=== PATIENT | female | born 1965 | race Hispanic/Latino ===

== ENCOUNTER 2017-11-10 09:38 | Outpatient (CLI) | payer OTHER ==
--- NOTE | 2017-11-10 14:15 | Fluoroscopy Report ---
FLUOROSCOPIC SNIFF TEST: INDICATION: Disorders of diaphragm. Difficulty breathing, dropping oxygen saturation. History of intubation/ICU stay. COMPARISON: None similar. FINDINGS: Diaphragmatic excursion observed under fluoroscopy in neutral, deep inspiration and deep expiration. 5 images obtained. Neutral image demonstrates right hemidiaphragm elevated by approximately 5 cm relative to the left. Right basilar atelectasis. Thoracic spondylosis. Fluoroscopic images during inspiration and expiration demonstrate normal excursion of the left hemidiaphragm. Minimal right hemidiaphragmatic movement noted. CONCLUSION: Elevated/paralyzed right hemidiaphragm with few other findings, as described. Thank you for the opportunity to participate in this patient's care.
== END 2017-11-10 09:39 | disposition home or self-care (01) ==
LOC: FLUORO 09:38
PROVIDERS: ATTEND Internal Medicine Pulmonary Disease
DX: J98.11 Atelectasis (principal); J98.6 Disorders of diaphragm; M47.894 Other spondylosis, thoracic region
CPT/HCPCS: 76001